=== PATIENT | male | born 1950 | race Caucasian/White ===

== ENCOUNTER 2021-09-07 17:18 | Inpatient (IN) | payer MEDICARE ==
[2021-09-07] MEDS ORDERED: Ondansetron ODT 4 MG TAB PO PRN (19:19)
[2021-09-07] MEDS ORDERED: Acetaminophen 325 MG TAB PO PRN (19:19)
[2021-09-07] MEDS ORDERED: Dextrose 5% in Water 1,000 ML IV PRN (19:21)
[2021-09-07] MEDS ORDERED: Dextrose 50% Abboject 50 ML SYRINGE SLOW IVP PRN (19:21)
[2021-09-07] MEDS ORDERED: hydrALAZINE 20 MG/ML VIAL SLOW IVP PRN (19:22)
[2021-09-07] MEDS ORDERED: Pharmacy to Dose REMDESIVIR IVPB PRN (19:22)
[2021-09-07] MEDS ORDERED: Electrolyte Replacement Protocol 1 EACH FS SCH (19:30)
[2021-09-07 20:11] VITALS: BMI 39.6
[2021-09-07] MEDS: methylPREDNISolone Sod Succ 40 MG VIAL IVP SCH (20:29)
[2021-09-07] MEDS: Heparin 5,000 UNITS/ML VIAL SC SCH (20:31)
[2021-09-07] MEDS: Cholecalciferol 1,000 UNITS (25 MCG) TAB PO SCH (20:31)
[2021-09-07] MEDS: Doxycycline 100 MG CAP PO SCH (20:31)
[2021-09-07 20:43] LABS: CKMB 1.4 ng/mL (0-6.6)
[2021-09-07] MEDS ORDERED: Carvedilol 6.25 MG TAB PO SCH (21:00)
[2021-09-07] MEDS: Carvedilol 6.25 MG TAB PO SCH (21:30)
[2021-09-07] MEDS: hydrALAZINE 25 MG TAB PO SCH (22:21)
[2021-09-07] MEDS: Sotalol HCl 80 MG TAB PO SCH (22:21)
[2021-09-07 23:27] LABS: Troponin I 0.021 ng/mL (< 0.028)
[2021-09-08] MEDS: methylPREDNISolone Sod Succ 40 MG VIAL IVP SCH ×4 (02:43→23:35)
[2021-09-08] MEDS ORDERED: Furosemide 40 MG/4 ML VIAL SLOW IVP SCH ×2 (04:15→09:00)
[2021-09-08 06:08] LABS: Hemoglobin A1c 6.6 % (4.0-6.0)
[2021-09-08 06:24] LABS: Anion Gap 19 mmol/L (10-20); BUN (Urea Nitrogen) 82 mg/dL (8.4-25.7); Calc. Creatinine Clearance 52 mL/min (70-130); Calcium 9.5 mg/dL (7.8-10.44); Carbon Dioxide 21 mmol/L (23-31); Cardiac Risk 4.7 (Less than 4.5); Chloride 101 mmol/L (98-107); Cholesterol 112 mg/dl (< 200 Desired); Glucose 245 mg/dL (83-110); HDL Cholesterol 24 mg/dL (>60 Neg Risk); LDL Cholesterol, Calculated 43 mg/dL; Magnesium 2.1 mg/dL (1.6-2.6); Potassium 3.6 mmol/L (3.5-5.1); Sodium 137 mmol/L (136-145); Triglycerides 224 mg/dL (Less than 150)
[2021-09-08] MEDS: HumaLOG 300 UNITS/3 ML VIAL SC PRN ×4 (06:44→20:16)
[2021-09-08] MEDS: Albuterol 200 PUFF (6.7GM INHALER) INH SCH ×4 (06:45→23:35)
[2021-09-08 07:00] LABS: Hemoglobin 14.2 g/dL (14.0-18.0); Mean Corpuscular HGB CONC 32.3 g/dL (32.0-36.0); Mean Corpuscular Hemoglobin 31.7 pg (27.0-31.0); Mean Corpuscular Volume 98.1 fL (78.0-98.0); Mean Platelet Volume 10.2 fL (7.4-10.4); Platelet Count 146 thou/uL (130-400); RBC Distribution Width 13.9 % (11.5-14.5); Red Blood Cell (RBC) Count 4.46 mill/uL (4.70-6.10); White Blood Cell (WBC) Count 3.9 thou/uL (4.8-10.8)
[2021-09-08 08:20] LABS: Band 4 % (5-11); Lymphocytes 26 % (21-51); MDiff Complete? YES; Monocytes 2 % (0-10); Neutrophil 68 % (42-75); Platelet Morphology Comment Appears Adequate; Polychromasia SLIGHT = 2-3 cells (100X) (0-2/hpf)
[2021-09-08] MEDS ORDERED: FLU VACC QS2021-22(65YR UP)/PF 240 MCG/0.7 ML SYRINGE IM ONE (09:00)
[2021-09-08] MEDS ORDERED: Non-Formulary Item 1 EACH (Budesonide-Formoterol [Symbicort 160-4.5] 160 MG/4.5 MG Aer) INH SCH (09:00)
[2021-09-08] MEDS: Doxycycline 100 MG CAP PO SCH ×2 (09:40→20:16)
[2021-09-08] MEDS: Heparin 5,000 UNITS/ML VIAL SC SCH ×3 (09:40→20:15)
[2021-09-08] MEDS: hydrALAZINE 25 MG TAB PO SCH ×2 (09:40→20:10)
[2021-09-08] MEDS: Allopurinol 100 MG TAB PO SCH ×2 (09:40→20:11)
[2021-09-08] MEDS: Ascorbic Acid 500 mg Chewable Tablet PO SCH (09:40)
[2021-09-08] MEDS: Sotalol HCl 80 MG TAB PO SCH ×2 (09:41→20:11)
[2021-09-08] MEDS: Carvedilol 6.25 MG TAB PO SCH ×2 (09:41→20:10)
[2021-09-08] MEDS: Zinc Sulfate 220 MG CAP PO SCH (09:42)
[2021-09-08] MEDS: Atorvastatin Calcium 40 MG TAB PO SCH (09:42)
[2021-09-08] MEDS: Aspirin 81 mg Enteric Coated Tablet PO SCH (09:42)
[2021-09-08 15:41] LABS: Anion Gap 15 mmol/L (10-20); BUN (Urea Nitrogen) 83 mg/dL (8.4-25.7); BUN/Creatinine Ratio 36.24; CK (CPK) 376 U/L (30-200); Calc. Creatinine Clearance 54 mL/min (70-130); Calcium 9.3 mg/dL (7.8-10.44); Carbon Dioxide 27 mmol/L (23-31); Chloride 100 mmol/L (98-107); Glucose 237 mg/dL (83-110); Potassium 3.6 mmol/L (3.5-5.1); Sodium 138 mmol/L (136-145)
[2021-09-08 16:06] LABS: Bacteria/HPF Rare-Few HPF (None Seen); Bilirubin Negative (Negative); Blood, Urine Negative (Negative); Clarity Clear (Clear); Glucose, Urine (Dipstick) Normal (Negative); Ketone, Urine Negative (Negative); Leukocyte Negative Leu/uL (Negative); Nitrite Negative (Negative); Protein, Urine (Dipstick) 10 mg/dL (Neg-Trace); RBC/HPF 0-3 HPF (0-3); Specific Gravity, Urine 1.017 (1.002-1.036); Squamous Epithelial None Seen HPF (0-3); Urobilinogen Normal mg/dL (Less than 2); WBC/HPF 0-3 HPF (0-3)
[2021-09-08 16:07] LABS: Urine Culture Reflex No No
[2021-09-08 16:39] LABS: Protein, Urine Random Quant 16 mg/dL (1-14); Sodium, Urine Less than 20 mmol/L (Not Available)
[2021-09-08] MEDS: Mometasone 200 MCG/Formoterol 5 MCG 120 PUFF INHALER INH SCH (17:51)
[2021-09-08] MEDS ORDERED: IPRATROPIUM ALBUTEROL INH SCH (18:30)
[2021-09-08] MEDS ORDERED: Ipratropium/Albuterol Sulfate 4 GM AER IH SCH (18:30)
[2021-09-08] MEDS: Cholecalciferol 1,000 UNITS (25 MCG) TAB PO SCH (20:11)
[2021-09-09 05:54] LABS: #Lymphocytes 1.2 thou/uL (1.20-3.40); #Monocytes 0.3 thou/uL (0.11-0.59); #Neutrophils 8.8 thou/uL (1.40-6.50); %Basophils 0.1 % (0.0-1.0); %Eosinophils 0.1 % (0.0-10.0); %Lymphocytes 11.3 % (21.0-51.0); %Monocytes 2.8 % (0.0-10.0); %Neutrophils 85.6 % (42.0-75.0); Hemoglobin 13.4 g/dL (14.0-18.0); Mean Corpuscular HGB CONC 32.9 g/dL (32.0-36.0); Mean Corpuscular Hemoglobin 32.1 pg (27.0-31.0); Mean Corpuscular Volume 97.5 fL (78.0-98.0); Mean Platelet Volume 10.1 fL (7.4-10.4); Platelet Count 166 thou/uL (130-400); RBC Distribution Width 13.6 % (11.5-14.5); Red Blood Cell (RBC) Count 4.17 mill/uL (4.70-6.10); White Blood Cell (WBC) Count 10.3 thou/uL (4.8-10.8)
[2021-09-09 06:17] LABS: Anion Gap 16 mmol/L (10-20); BUN (Urea Nitrogen) 95 mg/dL (8.4-25.7); Calc. Creatinine Clearance 58 mL/min (70-130); Calcium 9.2 mg/dL (7.8-10.44); Carbon Dioxide 24 mmol/L (23-31); Chloride 102 mmol/L (98-107); Glucose 228 mg/dL (83-110); Potassium 3.9 mmol/L (3.5-5.1); Sodium 138 mmol/L (136-145)
[2021-09-09] MEDS: Albuterol 200 PUFF (6.7GM INHALER) INH SCH ×3 (06:45→18:14)
[2021-09-09] MEDS: methylPREDNISolone Sod Succ 40 MG VIAL IVP SCH (06:47)
[2021-09-09] MEDS: Mometasone 200 MCG/Formoterol 5 MCG 120 PUFF INHALER INH SCH ×2 (06:48→18:12)
[2021-09-09] MEDS: HumaLOG 300 UNITS/3 ML VIAL SC PRN ×4 (06:49→20:54)
[2021-09-09] MEDS ORDERED: Ipratropium Oral Inhaler INH PRN (07:54)
[2021-09-09] MEDS ORDERED: Albuterol 200 PUFF (6.7GM INHALER) INH PRN (07:54)
[2021-09-09] MEDS ORDERED: REMDESIVIR 200 MG in Sodium Chloride 0.9% 250 ML 210 ML IV SCH (08:30)
[2021-09-09 08:31] LABS: ALT (SGPT) 57 U/L (8-55); AST (SGOT) 56 U/L (5-34); Albumin 3.5 g/dL (3.4-4.8); Alkaline Phosphatase 97 U/L (40-110); Bilirubin, Direct 0.2 mg/dL (0.1-0.3); Bilirubin, Total 0.5 mg/dL (0.2-1.2); Protein, Total 7.4 g/dL (5.8-8.1)
[2021-09-09] MEDS: Carvedilol 6.25 MG TAB PO SCH ×2 (09:44→20:49)
[2021-09-09] MEDS: Doxycycline 100 MG CAP PO SCH ×2 (09:45→20:53)
[2021-09-09] MEDS: Sotalol HCl 80 MG TAB PO SCH ×2 (09:45→20:50)
[2021-09-09] MEDS: Aspirin 81 mg Enteric Coated Tablet PO SCH (09:46)
[2021-09-09] MEDS: Zinc Sulfate 220 MG CAP PO SCH (09:46)
[2021-09-09] MEDS: Atorvastatin Calcium 40 MG TAB PO SCH (09:46)
[2021-09-09] MEDS: hydrALAZINE 25 MG TAB PO SCH (09:46)
[2021-09-09] MEDS: Allopurinol 100 MG TAB PO SCH ×2 (09:46→20:53)
[2021-09-09] MEDS: Heparin 5,000 UNITS/ML VIAL SC SCH ×3 (09:47→20:53)
[2021-09-09] MEDS: Lantus 1000 UNITS/10 ML VIAL SC SCH (09:58)
[2021-09-09] MEDS: Ascorbic Acid 500 mg Chewable Tablet PO SCH (09:58)
[2021-09-09] MEDS: Cholecalciferol 1,000 UNITS (25 MCG) TAB PO SCH (20:53)
[2021-09-09] MEDS: Senokot S 8.6-50 MG TAB PO SCH (21:34)
[2021-09-10] MEDS: Benzonatate 100 MG CAP PO PRN ×2 (00:15→20:14)
[2021-09-10] MEDS: Albuterol 200 PUFF (6.7GM INHALER) INH SCH ×4 (01:12→18:28)
[2021-09-10] MEDS: Mometasone 200 MCG/Formoterol 5 MCG 120 PUFF INHALER INH SCH ×2 (05:17→18:29)
[2021-09-10] MEDS: HumaLOG 300 UNITS/3 ML VIAL SC PRN ×4 (06:15→21:21)
[2021-09-10 07:08] LABS: Prothrombin Time 13.2 sec (12.0-14.7)
[2021-09-10 07:17] LABS: ALT (SGPT) 107 U/L (8-55); AST (SGOT) 77 U/L (5-34); Albumin 3.5 g/dL (3.4-4.8); Alkaline Phosphatase 96 U/L (40-110); Anion Gap 12 mmol/L (10-20); BUN (Urea Nitrogen) 84 mg/dL (8.4-25.7); Bilirubin, Total 0.5 mg/dL (0.2-1.2); Calc. Creatinine Clearance 74 mL/min (70-130); Calcium 8.9 mg/dL (7.8-10.44); Carbon Dioxide 27 mmol/L (23-31); Chloride 103 mmol/L (98-107); Globulin 3.7 g/dL (2.4-3.5); Glucose 193 mg/dL (83-110); Potassium 3.4 mmol/L (3.5-5.1); Protein, Total 7.2 g/dL (5.8-8.1); Sodium 139 mmol/L (136-145)
[2021-09-10] MEDS ORDERED: predniSONE 20 MG TAB PO SCH (08:00)
[2021-09-10] MEDS: Allopurinol 100 MG TAB PO SCH ×2 (08:18→20:14)
[2021-09-10] MEDS: Ascorbic Acid 500 mg Chewable Tablet PO SCH (08:18)
[2021-09-10] MEDS: Aspirin 81 mg Enteric Coated Tablet PO SCH (08:19)
[2021-09-10] MEDS: Carvedilol 6.25 MG TAB PO SCH ×2 (08:19→20:15)
[2021-09-10] MEDS: Atorvastatin Calcium 40 MG TAB PO SCH (08:19)
[2021-09-10] MEDS: Dexamethasone 4 mg/ml Vial SLOW IVP SCH (08:23)
[2021-09-10] MEDS: Doxycycline 100 MG CAP PO SCH ×2 (08:23→20:13)
[2021-09-10] MEDS: Heparin 5,000 UNITS/ML VIAL SC SCH ×3 (08:23→20:15)
[2021-09-10] MEDS: Lantus 1000 UNITS/10 ML VIAL SC SCH (08:24)
[2021-09-10] MEDS: REMDESIVIR 100 MG in Sodium Chloride 0.9% 250 ML 230 ML IV SCH (08:25)
[2021-09-10] MEDS: Senokot S 8.6-50 MG TAB PO SCH ×2 (08:26→20:13)
[2021-09-10] MEDS: Sotalol HCl 80 MG TAB PO SCH ×2 (08:26→20:14)
[2021-09-10] MEDS: Zinc Sulfate 220 MG CAP PO SCH (08:26)
[2021-09-10] MEDS ORDERED: Potassium Chloride 20 MEQ TAB PO SCH (08:30)
[2021-09-10 08:53] LABS: Magnesium 2.4 mg/dL (1.6-2.6)
[2021-09-10] MEDS ORDERED: guaiFENesin ER 600 MG TAB PO SCH (10:00)
[2021-09-10] MEDS: Cholecalciferol 1,000 UNITS (25 MCG) TAB PO SCH (20:14)
[2021-09-10] MEDS: guaiFENesin ER 600 MG TAB PO SCH (20:15)
[2021-09-11] MEDS: Albuterol 200 PUFF (6.7GM INHALER) INH SCH ×4 (03:49→21:09)
[2021-09-11 05:43] LABS: ALT (SGPT) 113 U/L (8-55); AST (SGOT) 66 U/L (5-34); Albumin 3.4 g/dL (3.4-4.8); Alkaline Phosphatase 95 U/L (40-110); Anion Gap 22 mmol/L (10-20); BUN (Urea Nitrogen) 68 mg/dL (8.4-25.7); Bilirubin, Total 0.5 mg/dL (0.2-1.2); Calc. Creatinine Clearance 92 mL/min (70-130); Carbon Dioxide 15 mmol/L (23-31); Chloride 105 mmol/L (98-107); Globulin 3.7 g/dL (2.4-3.5); Glucose 184 mg/dL (83-110); Potassium 3.9 mmol/L (3.5-5.1); Protein, Total 7.1 g/dL (5.8-8.1); Sodium 138 mmol/L (136-145)
[2021-09-11 05:55] LABS: INR-International Normal Ratio 1.1; Prothrombin Time 14.7 sec (12.0-14.7)
[2021-09-11] MEDS: Mometasone 200 MCG/Formoterol 5 MCG 120 PUFF INHALER INH SCH ×2 (06:57→17:18)
[2021-09-11] MEDS: HumaLOG 300 UNITS/3 ML VIAL SC PRN ×2 (07:35→21:31)
[2021-09-11] MEDS: Ascorbic Acid 500 mg Chewable Tablet PO SCH (09:18)
[2021-09-11] MEDS: Allopurinol 100 MG TAB PO SCH ×2 (09:18→21:09)
[2021-09-11] MEDS: Aspirin 81 mg Enteric Coated Tablet PO SCH (09:19)
[2021-09-11] MEDS: Atorvastatin Calcium 40 MG TAB PO SCH (09:19)
[2021-09-11] MEDS: Carvedilol 6.25 MG TAB PO SCH ×2 (09:20→21:08)
[2021-09-11] MEDS: Dexamethasone 4 mg/ml Vial SLOW IVP SCH (09:20)
[2021-09-11] MEDS: Heparin 5,000 UNITS/ML VIAL SC SCH ×3 (09:21→21:10)
[2021-09-11] MEDS: Doxycycline 100 MG CAP PO SCH ×2 (09:21→21:08)
[2021-09-11] MEDS: Lantus 1000 UNITS/10 ML VIAL SC SCH (09:21)
[2021-09-11] MEDS: guaiFENesin ER 600 MG TAB PO SCH ×2 (09:21→21:07)
[2021-09-11] MEDS: Sodium Bicarbonate Tab 325 MG TAB PO SCH ×3 (09:23→21:08)
[2021-09-11] MEDS: Senokot S 8.6-50 MG TAB PO SCH ×2 (09:23→21:08)
[2021-09-11] MEDS: REMDESIVIR 100 MG in Sodium Chloride 0.9% 250 ML 230 ML IV SCH (09:23)
[2021-09-11] MEDS: Sotalol HCl 80 MG TAB PO SCH ×2 (09:24→21:07)
[2021-09-11] MEDS: Zinc Sulfate 220 MG CAP PO SCH (09:25)
[2021-09-11] MEDS ORDERED: Albuterol Sulfate 1.25 MG/3 ML NEB ONE (10:24)
[2021-09-11] MEDS ORDERED: Albuterol Sulfate 2.5 mg/3 ml Neb ONE (10:24)
[2021-09-11] MEDS: Cholecalciferol 1,000 UNITS (25 MCG) TAB PO SCH (21:07)
[2021-09-11] MEDS: Benzonatate 100 MG CAP PO PRN (21:13)
[2021-09-12] MEDS: Albuterol 200 PUFF (6.7GM INHALER) INH SCH ×4 (01:32→18:25)
[2021-09-12 05:38] LABS: #Lymphocytes 0.9 thou/uL (1.20-3.40); #Monocytes 0.6 thou/uL (0.11-0.59); %Basophils 0.4 % (0.0-1.0); %Eosinophils 0.5 % (0.0-10.0); %Lymphocytes 11.9 % (21.0-51.0); %Monocytes 7.6 % (0.0-10.0); %Neutrophils 79.6 % (42.0-75.0); Hemoglobin 13.3 g/dL (14.0-18.0); Mean Corpuscular HGB CONC 33.1 g/dL (32.0-36.0); Mean Corpuscular Hemoglobin 32.3 pg (27.0-31.0); Mean Corpuscular Volume 97.6 fL (78.0-98.0); Mean Platelet Volume 10.2 fL (7.4-10.4); Platelet Count 162 thou/uL (130-400); RBC Distribution Width 13.6 % (11.5-14.5); Red Blood Cell (RBC) Count 4.13 mill/uL (4.70-6.10); White Blood Cell (WBC) Count 7.5 thou/uL (4.8-10.8)
[2021-09-12 05:40] LABS: INR-International Normal Ratio 1.1; Prothrombin Time 13.8 sec (12.0-14.7)
[2021-09-12 05:51] LABS: Phosphorus 2.8 mg/dL (2.3-4.7)
[2021-09-12 05:52] LABS: CRP (Inflammatory) 2.22 mg/dL (= or < 0.5)
[2021-09-12] MEDS: Mometasone 200 MCG/Formoterol 5 MCG 120 PUFF INHALER INH SCH ×2 (05:58→18:25)
[2021-09-12] MEDS: Benzonatate 100 MG CAP PO PRN (06:03)
[2021-09-12] MEDS: HumaLOG 300 UNITS/3 ML VIAL SC PRN ×4 (06:16→21:00)
[2021-09-12 06:18] LABS: Ferritin 1524.88 ng/mL (22-322)
[2021-09-12 06:19] LABS: Hep C IgG Ab Non-Reactive (NonReactive); Hep C Index 0.22 S/CO (0-0.79)
[2021-09-12 06:38] LABS: Iron Binding Capacity, Total 206 mcg/dL (261-462)
[2021-09-12 06:39] LABS: Iron 94 ug/dL (65-175)
[2021-09-12 06:50] LABS: ALT (SGPT) 119 U/L (8-55); AST (SGOT) 57 U/L (5-34); Albumin 3.5 g/dL (3.4-4.8); Alkaline Phosphatase 91 U/L (40-110); Anion Gap 10 mmol/L (10-20); BUN (Urea Nitrogen) 51 mg/dL (8.4-25.7); Bilirubin, Total 0.6 mg/dL (0.2-1.2); Calc. Creatinine Clearance 97 mL/min (70-130); Calcium 9.2 mg/dL (7.8-10.44); Carbon Dioxide 30 mmol/L (23-31); Chloride 105 mmol/L (98-107); Globulin 3.4 g/dL (2.4-3.5); Glucose 180 mg/dL (83-110); Magnesium 2.4 mg/dL (1.6-2.6); Potassium 3.7 mmol/L (3.5-5.1); Protein, Total 6.9 g/dL (5.8-8.1); Sodium 141 mmol/L (136-145)
[2021-09-12] MEDS: Dexamethasone 4 mg/ml Vial SLOW IVP SCH (08:43)
[2021-09-12] MEDS: Heparin 5,000 UNITS/ML VIAL SC SCH ×3 (08:43→20:15)
[2021-09-12] MEDS: Lantus 1000 UNITS/10 ML VIAL SC SCH (08:44)
[2021-09-12] MEDS: Sodium Bicarbonate Tab 325 MG TAB PO SCH ×2 (08:45→20:15)
[2021-09-12] MEDS: Doxycycline 100 MG CAP PO SCH ×2 (08:45→20:15)
[2021-09-12] MEDS: Senokot S 8.6-50 MG TAB PO SCH ×2 (08:45→20:15)
[2021-09-12] MEDS: Ascorbic Acid 500 mg Chewable Tablet PO SCH (08:45)
[2021-09-12] MEDS: Aspirin 81 mg Enteric Coated Tablet PO SCH (08:45)
[2021-09-12] MEDS: Zinc Sulfate 220 MG CAP PO SCH (08:46)
[2021-09-12] MEDS: Sotalol HCl 80 MG TAB PO SCH ×2 (08:46→20:15)
[2021-09-12] MEDS: guaiFENesin ER 600 MG TAB PO SCH ×2 (08:47→20:15)
[2021-09-12] MEDS: Allopurinol 100 MG TAB PO SCH ×2 (08:47→20:14)
[2021-09-12] MEDS: Carvedilol 6.25 MG TAB PO SCH ×2 (08:47→20:14)
[2021-09-12] MEDS: Atorvastatin Calcium 40 MG TAB PO SCH (09:16)
[2021-09-12] MEDS: REMDESIVIR 100 MG in Sodium Chloride 0.9% 250 ML 230 ML IV SCH (09:18)
[2021-09-12] MEDS ORDERED: Sodium Chloride 0.65% Nasal 44 ML BOT EA NARE PRN (12:49)
[2021-09-12] MEDS ORDERED: Ipratropium Bromide 0.06% Nasal Inhaler 15ml EA NARE PRN (15:00)
[2021-09-12] MEDS: Cholecalciferol 1,000 UNITS (25 MCG) TAB PO SCH (20:15)
[2021-09-13] MEDS: Albuterol 200 PUFF (6.7GM INHALER) INH SCH ×4 (01:00→21:50)
[2021-09-13] MEDS: Mometasone 200 MCG/Formoterol 5 MCG 120 PUFF INHALER INH SCH ×2 (05:07→16:08)
[2021-09-13 05:30] LABS: INR-International Normal Ratio 1.1; Prothrombin Time 13.9 sec (12.0-14.7)
[2021-09-13 06:00] LABS: Mean Corpuscular HGB CONC 31.8 g/dL (32.0-36.0); Mean Corpuscular Hemoglobin 31.3 pg (27.0-31.0); Mean Corpuscular Volume 98.3 fL (78.0-98.0); Mean Platelet Volume 9.9 fL (7.4-10.4); Platelet Count 207 thou/uL (130-400); RBC Distribution Width 13.6 % (11.5-14.5); Red Blood Cell (RBC) Count 4.46 mill/uL (4.70-6.10)
[2021-09-13 06:17] LABS: Magnesium 2.3 mg/dL (1.6-2.6); Phosphorus 2.9 mg/dL (2.3-4.7)
[2021-09-13 06:28] LABS: Eosinophils 1 % (0-10); Lymphocytes 9 % (21-51); MDiff Complete? YES; Monocytes 8 % (0-10); Neutrophil 82 % (42-75)
[2021-09-13] MEDS: Dexamethasone 4 mg/ml Vial SLOW IVP SCH (08:34)
[2021-09-13] MEDS: Heparin 5,000 UNITS/ML VIAL SC SCH ×3 (08:34→21:49)
[2021-09-13] MEDS: Lantus 1000 UNITS/10 ML VIAL SC SCH (08:34)
[2021-09-13] MEDS: REMDESIVIR 100 MG in Sodium Chloride 0.9% 250 ML 230 ML IV SCH (08:35)
[2021-09-13] MEDS: Carvedilol 6.25 MG TAB PO SCH ×2 (08:35→21:48)
[2021-09-13] MEDS: Aspirin 81 mg Enteric Coated Tablet PO SCH (08:36)
[2021-09-13] MEDS: Sodium Bicarbonate Tab 325 MG TAB PO SCH ×2 (08:36→21:48)
[2021-09-13] MEDS: Zinc Sulfate 220 MG CAP PO SCH (08:36)
[2021-09-13] MEDS: guaiFENesin ER 600 MG TAB PO SCH ×2 (08:36→21:49)
[2021-09-13] MEDS: Atorvastatin Calcium 40 MG TAB PO SCH (08:36)
[2021-09-13] MEDS: Senokot S 8.6-50 MG TAB PO SCH ×2 (08:36→21:48)
[2021-09-13] MEDS: Allopurinol 100 MG TAB PO SCH ×2 (08:36→21:48)
[2021-09-13] MEDS: Sotalol HCl 80 MG TAB PO SCH ×2 (08:36→21:49)
[2021-09-13] MEDS: Ascorbic Acid 500 mg Chewable Tablet PO SCH (08:37)
[2021-09-13 09:50] LABS: Anion Gap 15 mmol/L (10-20); BUN (Urea Nitrogen) 38 mg/dL (8.4-25.7); Calc. Creatinine Clearance 119 mL/min (70-130); Calcium 9.5 mg/dL (7.8-10.44); Carbon Dioxide 25 mmol/L (23-31); Chloride 106 mmol/L (98-107); Glucose 155 mg/dL (83-110); Potassium 4.1 mmol/L (3.5-5.1); Sodium 142 mmol/L (136-145)
[2021-09-13] MEDS: HumaLOG 300 UNITS/3 ML VIAL SC PRN ×2 (17:24→21:51)
[2021-09-13] MEDS: Cholecalciferol 1,000 UNITS (25 MCG) TAB PO SCH (21:48)
[2021-09-14] MEDS: Albuterol 200 PUFF (6.7GM INHALER) INH SCH ×4 (02:19→20:18)
[2021-09-14 05:20] LABS: INR-International Normal Ratio 1.1; Prothrombin Time 13.9 sec (12.0-14.7)
[2021-09-14 05:31] LABS: Magnesium 2.3 mg/dL (1.6-2.6); Phosphorus 3.4 mg/dL (2.3-4.7)
[2021-09-14 06:03] LABS: Band 2 % (5-11); Hemoglobin 14.5 g/dL (14.0-18.0); Lymphocytes 21 % (21-51); MDiff Complete? YES; Mean Corpuscular HGB CONC 32.3 g/dL (32.0-36.0); Mean Corpuscular Volume 99.1 fL (78.0-98.0); Mean Platelet Volume 9.9 fL (7.4-10.4); Monocytes 3 % (0-10); Neutrophil 74 % (42-75); Platelet Count 197 thou/uL (130-400); RBC Distribution Width 13.8 % (11.5-14.5); Red Blood Cell (RBC) Count 4.52 mill/uL (4.70-6.10)
[2021-09-14] MEDS: Mometasone 200 MCG/Formoterol 5 MCG 120 PUFF INHALER INH SCH ×2 (08:40→17:19)
[2021-09-14] MEDS: Dexamethasone 4 mg/ml Vial SLOW IVP SCH (08:41)
[2021-09-14] MEDS: Atorvastatin Calcium 40 MG TAB PO SCH (08:41)
[2021-09-14] MEDS: Heparin 5,000 UNITS/ML VIAL SC SCH ×3 (08:41→20:20)
[2021-09-14] MEDS: Senokot S 8.6-50 MG TAB PO SCH ×2 (08:41→20:22)
[2021-09-14] MEDS: Lantus 1000 UNITS/10 ML VIAL SC SCH (08:41)
[2021-09-14] MEDS: guaiFENesin ER 600 MG TAB PO SCH ×2 (08:42→20:22)
[2021-09-14] MEDS: Allopurinol 100 MG TAB PO SCH ×2 (08:42→20:22)
[2021-09-14] MEDS: Zinc Sulfate 220 MG CAP PO SCH (08:42)
[2021-09-14] MEDS: Ascorbic Acid 500 mg Chewable Tablet PO SCH (08:42)
[2021-09-14] MEDS: Sotalol HCl 80 MG TAB PO SCH ×2 (08:42→20:22)
[2021-09-14] MEDS: Carvedilol 6.25 MG TAB PO SCH ×2 (08:42→20:22)
[2021-09-14] MEDS: Sodium Bicarbonate Tab 325 MG TAB PO SCH ×2 (08:42→20:21)
[2021-09-14] MEDS: Aspirin 81 mg Enteric Coated Tablet PO SCH (08:43)
[2021-09-14] MEDS: HumaLOG 300 UNITS/3 ML VIAL SC PRN ×3 (11:30→20:18)
[2021-09-14] MEDS: Cholecalciferol 1,000 UNITS (25 MCG) TAB PO SCH (20:22)
[2021-09-15] MEDS: Albuterol 200 PUFF (6.7GM INHALER) INH SCH ×3 (02:01→14:33)
[2021-09-15 05:33] LABS: Anion Gap 14 mmol/L (10-20); BUN (Urea Nitrogen) 28 mg/dL (8.4-25.7); Calc. Creatinine Clearance 111 mL/min (70-130); Calcium 9.5 mg/dL (7.8-10.44); Carbon Dioxide 25 mmol/L (23-31); Chloride 105 mmol/L (98-107); Glucose 159 mg/dL (83-110); Magnesium 2.3 mg/dL (1.6-2.6); Phosphorus 3.6 mg/dL (2.3-4.7); Potassium 4.2 mmol/L (3.5-5.1); Sodium 140 mmol/L (136-145)
[2021-09-15 05:41] LABS: Hemoglobin 14.4 g/dL (14.0-18.0); Lymphocytes 18 % (21-51); MDiff Complete? YES; Mean Corpuscular HGB CONC 32.1 g/dL (32.0-36.0); Mean Corpuscular Hemoglobin 32.1 pg (27.0-31.0); Mean Corpuscular Volume 99.8 fL (78.0-98.0); Mean Platelet Volume 10.1 fL (7.4-10.4); Monocytes 1 % (0-10); Neutrophil 81 % (42-75); Platelet Count 215 thou/uL (130-400); Platelet Morphology Comment Appears Adequate; RBC Distribution Width 13.9 % (11.5-14.5); RBC Morphology Normal; Red Blood Cell (RBC) Count 4.49 mill/uL (4.70-6.10); White Blood Cell (WBC) Count 10.2 thou/uL (4.8-10.8)
[2021-09-15] MEDS: Mometasone 200 MCG/Formoterol 5 MCG 120 PUFF INHALER INH SCH (05:51)
[2021-09-15] MEDS: Heparin 5,000 UNITS/ML VIAL SC SCH ×2 (08:38→14:43)
[2021-09-15] MEDS: Carvedilol 6.25 MG TAB PO SCH (08:38)
[2021-09-15] MEDS: Senokot S 8.6-50 MG TAB PO SCH (08:38)
[2021-09-15] MEDS: Sodium Bicarbonate Tab 325 MG TAB PO SCH (08:38)
[2021-09-15] MEDS: Atorvastatin Calcium 40 MG TAB PO SCH (08:39)
[2021-09-15] MEDS: Zinc Sulfate 220 MG CAP PO SCH (08:39)
[2021-09-15] MEDS: Aspirin 81 mg Enteric Coated Tablet PO SCH (08:39)
[2021-09-15] MEDS: Allopurinol 100 MG TAB PO SCH (08:39)
[2021-09-15] MEDS: Ascorbic Acid 500 mg Chewable Tablet PO SCH (08:39)
[2021-09-15] MEDS: Sotalol HCl 80 MG TAB PO SCH (08:39)
[2021-09-15] MEDS: guaiFENesin ER 600 MG TAB PO SCH (08:39)
[2021-09-15 11:16] LABS: Hep B Surface AG-Rflx Sendout Negative (Negative); Hepatitis B Core Total Negative (Negative); Hepatitis B Surface AB-Sendout Non Reactive (.)
[2021-09-15] MEDS: HumaLOG 300 UNITS/3 ML VIAL SC PRN (11:26)
[2021-09-15 16:46] VITALS: BP 118/62; TEMP 97.7
== END 2021-09-15 19:16 | DRG 177 ==
LOC: 2SW 17:18 → OBSVTOIN 09-08 07:29
PROVIDERS: ADMIT Internal Medicine; ATTEND Family Medicine
PROC: 5A09457 Assistance with Respiratory Ventilation, 24-96 Consecutive Hours, Continuous Positive Airway Pressure (ICD-10-PCS; principal; 2021-09-08)
PROC: 8E0ZXY6 Isolation (ICD-10-PCS; 2021-09-08)
PROC: XW033E5 Introduction of Remdesivir Anti-infective into Peripheral Vein, Percutaneous Approach, New Technology Group 5 (ICD-10-PCS; 2021-09-09)
PROC: 3E0333Z Introduction of Anti-inflammatory into Peripheral Vein, Percutaneous Approach (ICD-10-PCS; 2021-09-10)
DX: U07.1 COVID-19 (principal); I50.33 Acute on chronic diastolic (congestive) heart failure; J96.21 Acute and chronic respiratory failure with hypoxia; N17.9 Acute kidney failure, unspecified; J44.0 Chronic obstructive pulmonary disease with (acute) lower respiratory infection; J44.1 Chronic obstructive pulmonary disease with (acute) exacerbation; I13.0 Hypertensive heart and chronic kidney disease with heart failure and stage 1 through stage 4 chronic kidney disease, or unspecified chronic kidney disease; E87.2 Acidosis; G47.33 Obstructive sleep apnea (adult) (pediatric); I25.10 Atherosclerotic heart disease of native coronary artery without angina pectoris; G89.29 Other chronic pain; E78.5 Hyperlipidemia, unspecified; E11.51 Type 2 diabetes mellitus with diabetic peripheral angiopathy without gangrene; Z20.822 Contact with and (suspected) exposure to COVID-19; I45.10 Unspecified right bundle-branch block; N18.30 Chronic kidney disease, stage 3 unspecified; I87.8 Other specified disorders of veins; E11.69 Type 2 diabetes mellitus with other specified complication; E66.01 Morbid (severe) obesity due to excess calories; I27.20 Pulmonary hypertension, unspecified; I25.5 Ischemic cardiomyopathy; E87.6 Hypokalemia; I48.0 Paroxysmal atrial fibrillation; I08.1 Rheumatic disorders of both mitral and tricuspid valves; T38.0X5A Adverse effect of glucocorticoids and synthetic analogues, initial encounter; E11.22 Type 2 diabetes mellitus with diabetic chronic kidney disease; Z79.82 Long term (current) use of aspirin; Z99.81 Dependence on supplemental oxygen; Z95.1 Presence of aortocoronary bypass graft; I25.2 Old myocardial infarction; Z79.899 Other long term (current) drug therapy; Z95.0 Presence of cardiac pacemaker; Z95.2 Presence of prosthetic heart valve; Z90.49 Acquired absence of other specified parts of digestive tract; Z87.891 Personal history of nicotine dependence; Z68.38 Body mass index [BMI] 38.0-38.9, adult
CPT/HCPCS: 36415; 36416; 71045; 76770; 80048; 80053; 80061; 80076; 81001; 82550; 82553; 82570; 82728; 83036; 83540; 83550; 83735; 83880; 84100; 84145; 84156; 84300; 84443; 84540; 85025; 85379; 85610; 86140; 86704; 86705; 86706; 86707; 86803; 87340; 87350; 90471; 90662; 93306; 93798; G0008; J0248; J1100; J1644; J1815; J1940; J2920; J7050; J7611

== ENCOUNTER 2024-06-09 21:33 | Inpatient (IN) | payer MEDICARE, OTHER ==
[2024-06-09 22:55] LABS: #Basophils Less than 0.03 10x3/uL (0.0-0.2); #Eosinophils Less than 0.03 10x3/uL (0.0-0.7); %Basophils 0.1 % (0.0-1.0); %Monocytes 4.1 % (0.0-10.0); Hematocrit 35.7 % (42.0-52.0); Hemoglobin 11.7 g/dL (14.0-18.0); Mean Corpuscular HGB CONC 32.8 g/dL (32.0-36.0); Mean Corpuscular Hemoglobin 29.9 pg (27.0-31.0); Mean Corpuscular Volume 91.3 fL (78.0-98.0); Mean Platelet Volume 11.4 fL (7.4-10.4); Platelet Count 224 10x3/uL (130-400); RBC Distribution Width 15.5 % (11.5-14.5); Red Blood Cell (RBC) Count 3.91 mill/uL (4.70-6.10)
[2024-06-09 22:55] LABS: Actual Bicarbonate (HCO3v) 26.1 mEq/L (22-28); Analyzer IN Cardio ER; Base Excess 2.4 mEq/L (-2.0 to +3.0); Calcium, Ionized (venous) 1.05 mmol/L (1.16-1.32); Chloride (VBG) 99 mmol/L (98-106); Hematocrit-VBG 38 % (42.0-52.0); Hemoglobin (Hb) 12.8 g/dL (12.6-17.4); Potassium (VBG) 4.18 mmol/L (3.70-5.30); Sodium 136 mmol/L (133-146); pH (venous) 7.463 (7.32-7.43)
[2024-06-09 23:13] LABS: ALT (SGPT) 35 U/L (8-55); AST (SGOT) 105 U/L (5-34); Albumin 2.6 g/dL (3.4-4.8); Alkaline Phosphatase 63 U/L (40-110); Anion Gap 15 mmol/L (10-20); BUN (Urea Nitrogen) 55 mg/dL (8.4-25.7); Bilirubin, Total 0.7 mg/dL (0.2-1.2); Calc. Creatinine Clearance 0 mL/min (70-130); Calcium 9.1 mg/dL (7.8-10.44); Carbon Dioxide 23 mmol/L (23-31); Chloride 100 mmol/L (98-107); Estimated GFR 16; Globulin 4.6 g/dL (2.4-3.5); Glucose 129 mg/dL (83-110); Potassium 4.1 mmol/L (3.5-5.1); Protein, Total 7.2 g/dL (5.8-8.1); Sodium 134 mmol/L (136-145)
[2024-06-09 23:16] LABS: Troponin I 0.084 ng/mL (< 0.028)
[2024-06-10] MEDS ORDERED: Acetaminophen 650 MG Suppository PR PRN (00:42)
[2024-06-10] MEDS ORDERED: Senokot S 8.6-50 MG TAB PO PRN (00:42)
[2024-06-10] MEDS ORDERED: Ondansetron ODT 4 MG TAB PO PRN (00:42)
[2024-06-10] MEDS ORDERED: Ondansetron PF 4 MG/2 ML Vial IVP PRN (00:42)
[2024-06-10] MEDS ORDERED: Cefepime 2 GM VIAL ONE (01:31)
[2024-06-10] MEDS ORDERED: predniSONE 20 MG TAB ONE (01:31)
[2024-06-10] MEDS ORDERED: Sodium Chloride 0.9% 100 ML ONE (01:31)
[2024-06-10] MEDS ORDERED: Enoxaparin 40 MG (0.4 mL) SYRINGE ONE (01:31)
[2024-06-10] MEDS ORDERED: Magnesium 2 GM/50 ML BAG (IN WATER) ONE (01:31)
[2024-06-10] MEDS ORDERED: Enoxaparin 100 MG (1 mL) SYRINGE ONE (01:31)
[2024-06-10] MEDS ORDERED: Ipratropium/Albuterol 3 ML NEB ONE (01:32)
[2024-06-10] MEDS: VANCOMYCIN 1.25 GM/250 ML BAG 1.25 GM in Premix 1 BAG IVPB SCH (04:30)
[2024-06-10 04:40] VITALS: BMI 40.5
[2024-06-10] MEDS: Furosemide 40 MG (4 mL) VIAL SLOW IVP SCH (04:57)
[2024-06-10] MEDS ORDERED: Vancomycin Dose by Levels Sliding Scale (Wt > 99) FS SCH (05:00)
[2024-06-10] MEDS: Ipratropium/Albuterol 3 ML NEB NEB PRN (05:52)
[2024-06-10 06:05] LABS: #Basophils 0.03 10x3/uL (0.0-0.2); #Eosinophils Less than 0.03 10x3/uL (0.0-0.7); %Basophils 0.1 % (0.0-1.0); %Eosinophils 0.1 % (0.0-10.0); %Lymphocytes 9.1 % (21.0-51.0); %Monocytes 3.5 % (0.0-10.0); %Neutrophils 86.3 % (42.0-75.0); Hematocrit 34.5 % (42.0-52.0); Hemoglobin 11.3 g/dL (14.0-18.0); Mean Corpuscular HGB CONC 32.8 g/dL (32.0-36.0); Mean Corpuscular Hemoglobin 29.9 pg (27.0-31.0); Mean Corpuscular Volume 91.3 fL (78.0-98.0); Mean Platelet Volume 11.1 fL (7.4-10.4); Platelet Count 236 10x3/uL (130-400); RBC Distribution Width 15.6 % (11.5-14.5); Red Blood Cell (RBC) Count 3.78 mill/uL (4.70-6.10)
[2024-06-10 06:38] LABS: Anion Gap 19 mmol/L (10-20); BUN (Urea Nitrogen) 61 mg/dL (8.4-25.7); Calc. Creatinine Clearance 36 mL/min (70-130); Calcium 8.8 mg/dL (7.8-10.44); Carbon Dioxide 21 mmol/L (23-31); Chloride 99 mmol/L (98-107); Estimated GFR 18; Glucose 134 mg/dL (83-110); Sodium 135 mmol/L (136-145)
[2024-06-10 06:53] LABS: Troponin I 0.068 ng/mL (< 0.028)
[2024-06-10 08:13] LABS: Bacteria/HPF None Seen HPF (None Seen); Bilirubin Negative (Negative); Blood, Urine 3+ (Negative); CAUTI Indications for Culture Alt mental st,lethar; Clarity Turbid (Clear); Glucose, Urine (Dipstick) Normal (Negative); Ketone, Urine Negative (Negative); Leukocyte Negative Leu/uL (Negative); Nitrite Negative (Negative); Protein, Urine (Dipstick) 50 mg/dL (Neg-Trace); RBC/HPF 0-3 HPF (0-3); Specific Gravity, Urine 1.013 (1.002-1.036); Squamous Epithelial 0-3 HPF (0-3); Urobilinogen Normal mg/dL (Less than 2); WBC/HPF 0-3 HPF (0-3); pH, Urine 5.5 (5.0-9.0)
[2024-06-10 08:14] LABS: Urine Culture Reflex No No
[2024-06-10] MEDS: Communication Order-Pharmacy FS ONE (08:17)
[2024-06-10] MEDS: Sodium Chloride 0.9% 250 ML 250 ML IVPB SCH (08:17)
[2024-06-10 08:30] LABS: Base Excess (BEa) -0.5 mEq/L (-2.0 to +3.0); CO2 Tension 38.9 mmHg (35.0-45.0); Calcium, Ionized (arterial) 1.11 mmol/L (1.12-1.30); Carboxyhemoglobin (COHb) 0.8 gm% (0.0-3.0); Hematocrit-ABG 40 % (42.0-52.0); Hemoglobin (Hb) 13.5 g/dL (14.0-18.0); Potassium - ABG Lab 3.94 mmol/L (3.70-5.30); pH, Arterial 7.408 (7.35-7.45)
[2024-06-10 08:32] LABS: Puncture Site Right Radial artery
[2024-06-10 08:57] LABS: Hematocrit 34.1 % (42.0-52.0); Hemoglobin 11.1 g/dL (14.0-18.0); Platelet Count 212 10x3/uL (130-400)
[2024-06-10] MEDS ORDERED: Vancomycin 1 GM in Premix 1 BAG IVPB SCH (09:00)
[2024-06-10 09:08] LABS: INR-International Normal Ratio 1.3; Prothrombin Time 16.1 sec (12.0-14.7)
[2024-06-10 09:10] LABS: PTT 60.7 sec (22.9-36.1)
[2024-06-10 09:20] LABS: Troponin I 0.038 ng/mL (< 0.028)
[2024-06-10] MEDS ORDERED: Dextrose 50% Abboject 50 ML SYRINGE SLOW IVP PRN (11:33)
[2024-06-10] MEDS ORDERED: Dextrose 5% in Water 1,000 ML IV PRN (11:33)
[2024-06-10] MEDS ORDERED: Glucagon 1 MG/ML KIT IM PRN (11:33)
[2024-06-10] MEDS: Ipratropium/Albuterol 3 ML NEB NEB SCH (12:58)
[2024-06-10] MEDS: Cefepime 1 GM in Sodium Chloride 0.9% 100 ML IVPB SCH (13:03)
[2024-06-10] MEDS: Albumin 25% 25 GM (100 mL) BOT IVPB SCH (18:00)
[2024-06-10] MEDS: Midodrine HCl 5 MG TAB PO SCH (18:00)
[2024-06-10] MEDS ORDERED: Enoxaparin 100 MG (1 mL) SYRINGE SC SCH (21:00)
[2024-06-10] MEDS ORDERED: Enoxaparin 40 MG (0.4 mL) SYRINGE SC SCH (21:00)
[2024-06-10] MEDS: Sodium Chloride 0.9% 500 ML IV SCH (21:34)
[2024-06-10] MEDS: Sodium Bicarbonate Tab 325 MG TAB PO SCH (21:36)
[2024-06-10] MEDS: Heparin 10,000 UNITS/ 10 ML VIAL SLOW IVP SCH (21:53)
[2024-06-10] MEDS: Heparin 25,000 units/D5W 500 ML IVPB SCH (21:56)
[2024-06-10] MEDS: Sodium Chloride 0.45% 1,000 ML IV SCH (22:03)
[2024-06-10 23:22] LABS: Sodium, Urine 30 mmol/L (Not Available); Urea Nitrogen, Random Urine 412 mg/dl
[2024-06-11 04:28] LABS: Creatinine, Urine 100.5 mg/dL (63-166)
[2024-06-11 04:30] LABS: Microalbumin Urine 5.9 mg/dL (0.5-50.0); Microalbumin/Creat Ratio 58.7 mg/g (Less than 30)
[2024-06-11 04:34] LABS: #Basophils Less than 0.03 10x3/uL (0.0-0.2); #Eosinophils Less than 0.03 10x3/uL (0.0-0.7); %Basophils 0.1 % (0.0-1.0); %Monocytes 5.4 % (0.0-10.0); %Neutrophils 82.9 % (42.0-75.0); Hematocrit 35.5 % (42.0-52.0); Hemoglobin 11.5 g/dL (14.0-18.0); Mean Corpuscular HGB CONC 32.4 g/dL (32.0-36.0); Mean Corpuscular Hemoglobin 29.3 pg (27.0-31.0); Mean Corpuscular Volume 90.6 fL (78.0-98.0); Mean Platelet Volume 12.1 fL (7.4-10.4); Platelet Count 236 10x3/uL (130-400); RBC Distribution Width 15.4 % (11.5-14.5); Red Blood Cell (RBC) Count 3.92 mill/uL (4.70-6.10)
[2024-06-11 04:53] LABS: PTT 192.2 sec (22.9-36.1)
[2024-06-11 04:58] LABS: Vancomycin, Trough 16.6 ug/mL
[2024-06-11 05:00] LABS: ALT (SGPT) 84 U/L (8-55); AST (SGOT) 173 U/L (5-34); Albumin 2.8 g/dL (3.4-4.8); Alkaline Phosphatase 77 U/L (40-110); Anion Gap 17 mmol/L (10-20); BUN (Urea Nitrogen) 69 mg/dL (8.4-25.7); Bilirubin, Total 0.5 mg/dL (0.2-1.2); CK (CPK) 4180 U/L (30-200); Calc. Creatinine Clearance 47 mL/min (70-130); Calcium 8.8 mg/dL (7.8-10.44); Carbon Dioxide 22 mmol/L (23-31); Chloride 97 mmol/L (98-107); Estimated GFR 25; Globulin 4.6 g/dL (2.4-3.5); Glucose 154 mg/dL (83-110); Potassium 3.6 mmol/L (3.5-5.1); Protein, Total 7.4 g/dL (5.8-8.1); Sodium 132 mmol/L (136-145)
[2024-06-11 08:06] LABS: INR-International Normal Ratio 1.1; Prothrombin Time 14.2 sec (12.0-14.7)
[2024-06-11 08:08] LABS: PTT 96.7 sec (22.9-36.1)
[2024-06-11] MEDS: Vancomycin HCl 750 MG in Sodium Chloride 0.9% 250 ML 250 ML IVPB SCH (08:32)
[2024-06-11] MEDS: Insulin Lispro 100 UNIT/ML 10 ML VIAL SC PRN (11:32)
[2024-06-11] MEDS: Cefepime 1 GM VIAL ONE (14:30)
[2024-06-11 14:44] VITALS: BMI 42.3
[2024-06-11] MEDS: Pantoprazole DR 40 MG TAB PO SCH (16:14)
[2024-06-11] MEDS: predniSONE 20 MG TAB PO SCH (16:17)
[2024-06-11] MEDS: CEFAZOLIN 2 GM in Sodium Chloride 0.9% 100 ML IVPB SCH (17:01)
[2024-06-11] MEDS: Mometasone 200 MCG/Formoterol 5 MCG 120 PUFF INHALER INH SCH (17:15)
[2024-06-11] MEDS: Ipratropium/Albuterol 3 ML NEB NEB SCH (18:25)
[2024-06-11] MEDS: Sotalol HCl 80 MG TAB PO SCH (20:12)
[2024-06-12 04:40] LABS: #Basophils Less than 0.03 10x3/uL (0.0-0.2); #Eosinophils Less than 0.03 10x3/uL (0.0-0.7); %Basophils 0.2 % (0.0-1.0); %Lymphocytes 11.1 % (21.0-51.0); %Monocytes 2.5 % (0.0-10.0); %Neutrophils 85.3 % (42.0-75.0); Hemoglobin 11.3 g/dL (14.0-18.0); Mean Corpuscular HGB CONC 31.4 g/dL (32.0-36.0); Mean Corpuscular Hemoglobin 29.2 pg (27.0-31.0); Mean Platelet Volume 12.7 fL (7.4-10.4); Platelet Count 227 10x3/uL (130-400); RBC Distribution Width 15.5 % (11.5-14.5); Red Blood Cell (RBC) Count 3.87 mill/uL (4.70-6.10)
[2024-06-12 07:14] LABS: ALT (SGPT) 144 U/L (8-55); AST (SGOT) 153 U/L (5-34); Albumin 2.6 g/dL (3.4-4.8); Alkaline Phosphatase 74 U/L (40-110); Anion Gap 13 mmol/L (10-20); BUN (Urea Nitrogen) 55 mg/dL (8.4-25.7); Bilirubin, Total 0.4 mg/dL (0.2-1.2); CK (CPK) 1500 U/L (30-200); Calc. Creatinine Clearance 86 mL/min (70-130); Calcium 8.8 mg/dL (7.8-10.44); Carbon Dioxide 25 mmol/L (23-31); Chloride 101 mmol/L (98-107); Estimated GFR 49; Globulin 4.6 g/dL (2.4-3.5); Glucose 170 mg/dL (83-110); Potassium 4.4 mmol/L (3.5-5.1); Protein, Total 7.2 g/dL (5.8-8.1); Sodium 135 mmol/L (136-145)
[2024-06-12 08:30] LABS: Hematocrit 36.9 % (42.0-52.0); Hemoglobin 11.7 g/dL (14.0-18.0); Platelet Count 245 10x3/uL (130-400)
[2024-06-12] MEDS: predniSONE 20 MG TAB PO SCH (09:47)
[2024-06-12] MEDS: Tamsulosin HCl 0.4 MG CAP PO SCH (09:47)
[2024-06-12] MEDS: Albumin 25% 25 GM (100 mL) BOT IVPB SCH (09:48)
[2024-06-12] MEDS: Aspirin Chewable 81 MG TAB PO SCH (09:48)
[2024-06-12] MEDS: Pantoprazole DR 40 MG TAB PO SCH (09:48)
[2024-06-12] MEDS: Sodium Chloride 0.45% 1,000 ML IV SCH (20:32)
[2024-06-13 05:14] LABS: #Basophils 0.03 10x3/uL (0.0-0.2); #Eosinophils Less than 0.03 10x3/uL (0.0-0.7); %Basophils 0.2 % (0.0-1.0); %Lymphocytes 11.9 % (21.0-51.0); %Monocytes 5.1 % (0.0-10.0); %Neutrophils 80.9 % (42.0-75.0); Hematocrit 35.8 % (42.0-52.0); Hemoglobin 11.4 g/dL (14.0-18.0); Mean Corpuscular HGB CONC 31.8 g/dL (32.0-36.0); Mean Corpuscular Hemoglobin 29.2 pg (27.0-31.0); Mean Corpuscular Volume 91.6 fL (78.0-98.0); Platelet Count 248 10x3/uL (130-400); RBC Distribution Width 15.3 % (11.5-14.5); Red Blood Cell (RBC) Count 3.91 mill/uL (4.70-6.10)
[2024-06-13 06:01] LABS: ALT (SGPT) 127 U/L (8-55); AST (SGOT) 106 U/L (5-34); Albumin 3.3 g/dL (3.4-4.8); Alkaline Phosphatase 104 U/L (40-110); Anion Gap 15 mmol/L (10-20); BUN (Urea Nitrogen) 46 mg/dL (8.4-25.7); Bilirubin, Total 0.4 mg/dL (0.2-1.2); CK (CPK) 648 U/L (30-200); Calc. Creatinine Clearance 90 mL/min (70-130); Calcium 8.4 mg/dL (7.8-10.44); Carbon Dioxide 23 mmol/L (23-31); Chloride 105 mmol/L (98-107); Estimated GFR 50; Globulin 3.4 g/dL (2.4-3.5); Glucose 171 mg/dL (83-110); Potassium 4.6 mmol/L (3.5-5.1); Protein, Total 6.7 g/dL (5.8-8.1); Sodium 138 mmol/L (136-145)
[2024-06-13] MEDS: Furosemide 40 MG (4 mL) VIAL SLOW IVP SCH (10:20)
[2024-06-13] MEDS: methylPREDNISolone Sod Succ/PF 125 MG/2 ML VIAL IVP SCH (10:21)
[2024-06-13] MEDS: methylPREDNISolone Sod Succ 40 MG VIAL IVP SCH (16:26)
[2024-06-14 04:36] LABS: #Basophils 0.04 10x3/uL (0.0-0.2); #Eosinophils Less than 0.03 10x3/uL (0.0-0.7); %Basophils 0.3 % (0.0-1.0); %Lymphocytes 9.9 % (21.0-51.0); %Neutrophils 84.4 % (42.0-75.0); Hematocrit 36.9 % (42.0-52.0); Hemoglobin 11.7 g/dL (14.0-18.0); Mean Corpuscular HGB CONC 31.7 g/dL (32.0-36.0); Mean Corpuscular Hemoglobin 29.3 pg (27.0-31.0); Mean Corpuscular Volume 92.5 fL (78.0-98.0); Mean Platelet Volume 12.2 fL (7.4-10.4); Platelet Count 278 10x3/uL (130-400); RBC Distribution Width 15.4 % (11.5-14.5); Red Blood Cell (RBC) Count 3.99 mill/uL (4.70-6.10)
[2024-06-14 04:54] LABS: ALT (SGPT) 99 U/L (8-55); AST (SGOT) 74 U/L (5-34); Alkaline Phosphatase 93 U/L (40-110); Anion Gap 17 mmol/L (10-20); BUN (Urea Nitrogen) 46 mg/dL (8.4-25.7); Bilirubin, Total 0.4 mg/dL (0.2-1.2); Calc. Creatinine Clearance 93 mL/min (70-130); Calcium 9.1 mg/dL (7.8-10.44); Carbon Dioxide 22 mmol/L (23-31); Chloride 104 mmol/L (98-107); Estimated GFR 52; Globulin 4.1 g/dL (2.4-3.5); Glucose 200 mg/dL (83-110); Potassium 4.5 mmol/L (3.5-5.1); Protein, Total 7.1 g/dL (5.8-8.1); Sodium 138 mmol/L (136-145)
[2024-06-14] MEDS: Furosemide 40 MG (4 mL) VIAL SLOW IVP SCH (08:35)
[2024-06-14] MEDS: Apixaban 5 MG TAB PO SCH (09:20)
[2024-06-15 05:23] LABS: #Basophils 0.03 10x3/uL (0.0-0.2); #Eosinophils Less than 0.03 10x3/uL (0.0-0.7); %Basophils 0.2 % (0.0-1.0); %Lymphocytes 7.7 % (21.0-51.0); %Neutrophils 85.2 % (42.0-75.0); Hematocrit 36.4 % (42.0-52.0); Hemoglobin 11.2 g/dL (14.0-18.0); Mean Corpuscular HGB CONC 30.8 g/dL (32.0-36.0); Mean Corpuscular Hemoglobin 29.1 pg (27.0-31.0); Mean Corpuscular Volume 94.5 fL (78.0-98.0); Mean Platelet Volume 11.8 fL (7.4-10.4); Platelet Count 289 10x3/uL (130-400); RBC Distribution Width 15.5 % (11.5-14.5); Red Blood Cell (RBC) Count 3.85 mill/uL (4.70-6.10)
[2024-06-15 06:00] LABS: Anion Gap 16 mmol/L (10-20); BUN (Urea Nitrogen) 49 mg/dL (8.4-25.7); Calc. Creatinine Clearance 97 mL/min (70-130); Calcium 9.3 mg/dL (7.8-10.44); Carbon Dioxide 24 mmol/L (23-31); Chloride 105 mmol/L (98-107); Estimated GFR 55; Glucose 177 mg/dL (83-110); Potassium 4.8 mmol/L (3.5-5.1); Sodium 140 mmol/L (136-145)
[2024-06-15] MEDS: FLU (Fluad Triv) TS24-25 (65UP)/MF59C/PF 45 MCG/0.5 ML Syringe IM ONE (08:47)
[2024-06-15] MEDS: Dapagliflozin Propanediol 10 MG TAB PO SCH (08:58)
[2024-06-15] MEDS: Torsemide 10 MG TAB PO SCH (08:58)
[2024-06-15] MEDS ORDERED: Furosemide 40 MG (4 mL) VIAL SLOW IVP SCH (09:00)
[2024-06-15] MEDS: Acetaminophen 325 MG TAB PO PRN (20:55)
[2024-06-16 07:52] LABS: Anion Gap 13 mmol/L (10-20); BUN (Urea Nitrogen) 60 mg/dL (8.4-25.7); Calc. Creatinine Clearance 70 mL/min (70-130); Calcium 9.9 mg/dL (7.8-10.44); Carbon Dioxide 31 mmol/L (23-31); Chloride 101 mmol/L (98-107); Estimated GFR 59; Glucose 158 mg/dL (83-110); Potassium 4.7 mmol/L (3.5-5.1); Sodium 140 mmol/L (136-145)
[2024-06-16] MEDS: methylPREDNISolone Sod Succ 40 MG VIAL IVP SCH (08:52)
[2024-06-17 10:30] LABS: Anion Gap 16 mmol/L (10-20); BUN (Urea Nitrogen) 55 mg/dL (8.4-25.7); Calc. Creatinine Clearance 104 mL/min (70-130); Calcium 10.1 mg/dL (7.8-10.44); Carbon Dioxide 32 mmol/L (23-31); Chloride 99 mmol/L (98-107); Estimated GFR 62; Glucose 151 mg/dL (83-110); Potassium 4.8 mmol/L (3.5-5.1); Sodium 142 mmol/L (136-145)
[2024-06-18 04:59] LABS: Albumin 2.9 g/dL (3.4-4.8); Anion Gap 12 mmol/L (10-20); BUN (Urea Nitrogen) 55 mg/dL (8.4-25.7); Calc. Creatinine Clearance 103 mL/min (70-130); Calcium 9.9 mg/dL (7.8-10.44); Carbon Dioxide 35 mmol/L (23-31); Chloride 97 mmol/L (98-107); Estimated GFR 60; Glucose 176 mg/dL (83-110); Phosphorus 4.4 mg/dL (2.3-4.7); Potassium 5.3 mmol/L (3.5-5.1); Sodium 139 mmol/L (136-145)
[2024-06-18] MEDS: LOKELMA 10 GM PACKET PO SCH (09:49)
[2024-06-18] MEDS: Albumin 25% 25 GM (100 mL) BOT IVPB SCH (09:54)
[2024-06-18 16:28] VITALS: BP 169/81; TEMP 97.5
[2024-06-21] MEDS ORDERED: Apixaban 5 MG TAB PO SCH (09:00)
== END 2024-06-18 18:54 | disposition home or self-care (01) | DRG 871 ==
LOC: ERS 21:33 → 2SE 06-10 00:06 → 2NO 06-11 21:31
PROVIDERS: ADMIT Student in an Organized Health Care Education/Training Program; ATTEND Family Medicine
PROC: 4A133R1 Monitoring of Arterial Saturation, Peripheral, Percutaneous Approach (ICD-10-PCS; principal; 2024-06-10)
PROC: 3E03329 Introduction of Other Anti-infective into Peripheral Vein, Percutaneous Approach (ICD-10-PCS; 2024-06-10)
PROC: 30233J1 Transfusion of Nonautologous Serum Albumin into Peripheral Vein, Percutaneous Approach (ICD-10-PCS; 2024-06-10)
PROC: 5A09357 Assistance with Respiratory Ventilation, Less than 24 Consecutive Hours, Continuous Positive Airway Pressure (ICD-10-PCS; 2024-06-11)
DX: A41.9 Sepsis, unspecified organism (principal); I50.33 Acute on chronic diastolic (congestive) heart failure; J96.21 Acute and chronic respiratory failure with hypoxia; J18.9 Pneumonia, unspecified organism; I13.0 Hypertensive heart and chronic kidney disease with heart failure and stage 1 through stage 4 chronic kidney disease, or unspecified chronic kidney disease; I50.32 Chronic diastolic (congestive) heart failure; L03.116 Cellulitis of left lower limb; I82.412 Acute embolism and thrombosis of left femoral vein; E87.21 Acute metabolic acidosis; E87.1 Hypo-osmolality and hyponatremia; N17.9 Acute kidney failure, unspecified; J44.1 Chronic obstructive pulmonary disease with (acute) exacerbation; J96.11 Chronic respiratory failure with hypoxia; E11.22 Type 2 diabetes mellitus with diabetic chronic kidney disease; I25.5 Ischemic cardiomyopathy; I48.91 Unspecified atrial fibrillation; I25.10 Atherosclerotic heart disease of native coronary artery without angina pectoris; Z99.81 Dependence on supplemental oxygen; E66.01 Morbid (severe) obesity due to excess calories; Z79.899 Other long term (current) drug therapy; Z98.890 Other specified postprocedural states; Z95.1 Presence of aortocoronary bypass graft; Z95.0 Presence of cardiac pacemaker; Z90.49 Acquired absence of other specified parts of digestive tract; Z87.891 Personal history of nicotine dependence; N18.32 Chronic kidney disease, stage 3b; G47.33 Obstructive sleep apnea (adult) (pediatric); T79.6XXA Traumatic ischemia of muscle, initial encounter; Z68.30 Body mass index [BMI] 30.0-30.9, adult; R53.81 Other malaise
CPT/HCPCS: 36415; 36416; 36600; 71045; 76700; 76856; 78451; 80048; 80053; 80069; 80202; 81001; 82043; 82550; 82805; 83605; 83735; 83880; 84145; 84300; 84484; 84540; 85014; 85018; 85025; 85049; 85379; 85610; 85730; 86141; 87040; 87081; 87428; 93005; 93306; 94640; 94660; 96365; 96372; 96375; 97139; A9540; J0692; J1644; J1650; J1815; J1940; J2919; J3370; J3475; J7030; J7050; J7512; J7620; P9047